=== PATIENT | female | born 1975 | race Caucasian/White ===

== ENCOUNTER → 2019-11-11 | Outpatient (CLI) | payer OTHER, MEDICARE ==
--- NOTE | 2019-11-11 13:34 | Diagnostic Imaging Report ---
EXAMINATION: Left ankle at 1:13 p.m. INDICATION: Injury, ankle pain. TECHNIQUE: Three views were obtained. COMPARISON: There are no prior studies available for comparison. FINDINGS: There is a small avulsion fracture along the lateral margin of the lateral malleolus. There also appears to be a nondisplaced fracture extending to the lateral malleolus itself. No other fracture or acute bony abnormality is noted. The ankle mortise is not widened and the talar dome is smooth. There is soft tissue edema over the lateral aspect of the hindfoot. The lateral view does show a minute calcaneal spur. IMPRESSION: 1. There is a small avulsion fracture along the lateral margin of the lateral malleolus of the distal fibula. There is also a nondisplaced fracture of the lateral malleolus itself. 2. There is no acute bony abnormality noted, otherwise. Dictated by: Dictated on workstation # [id number]
== END ==
LOC: RAD FS 13:06
PROVIDERS: ATTEND Nurse Practitioner
DX: S82.65XA Nondisplaced fracture of lateral malleolus of left fibula, initial encounter for closed fracture (principal); X58.XXXA Exposure to other specified factors, initial encounter
CPT/HCPCS: 73610